=== PATIENT | male | born 2000 ===

== ENCOUNTER 2021-02-02 20:17 | Emergency (ER) | payer SELFPAY ==
[2021-02-02 20:41] VITALS: BP 137/87; PULSE 66; RESP 18; TEMP 36.2; O2SAT 99; BMI 27.3
[2021-02-02 21:33] LABS: COVID19 - ADMIT (NP swab/PCR) Negative (Negative)
--- NOTE | 2021-02-02 21:50 | ED.RECABL ---
HPI - Recheck/Abnormal Lab/Rx General Chief Complaint: Recheck/Abnormal Lab/Rx Stated Complaint: covid test for travel Time Seen by Provider: 02/02/21 21:49 Source: patient Mode of arrival: Ambulatory Limitations: no limitations History of Present Illness HPI narrative: Patient is an otherwise healthy 20-year-old male who has no symptoms and is fully immunized against COVID-19 who is here requesting a COVID test so that he can travel back to [place] Related Data Allergies Allergy/AdvReac Type Severity Reaction Status Date / Time No Known Drug Allergies Allergy Verified 02/02/21 20:41 Review of Systems Constitutional Comments: Denies fevers Respiratory Comments: Denies cough shortness of breath Gastrointestinal Comments: Denies abdominal pain or nausea and vomiting Integumentary/Breasts Comments: Denies rashes Patient History Medical History Healthy adult Social History Smoking Status: Never smoker Smoking Status: Never smoker alcohol intake frequency: holidays/special occasions only Substance Use Type: does not use Exam Initial Vital Signs Initial Vital Signs: Vital Signs Temperature 97.1 F L 02/02/21 20:41 Pulse Rate 66 02/02/21 20:41 Respiratory Rate 18 02/02/21 20:41 Blood Pressure 137/87 02/02/21 20:41 Pulse Oximetry 99 02/02/21 20:41 Const General: cooperative and comfortable Resp Effort & Inspection: normal respiratory effort Cardio Rate: regular rate Skin General: no rashes or lesions noted Neuro General: patient alert, patient awake and patient oriented x3 Extrem General: normal to inspection Psych Appearance: grossly normal and well kempt Course Orders Ordered: ED Orders 02/02/21 20:20 COVID19 - ADMIT (REHAB THERAPIST swab/PCR) Stat Vital Signs Vital signs: Vital Signs - 8 hr 02/02/21 20:41 Temperature 97.1 F L Pulse Rate 66 Respiratory Rate 18 Blood Pressure 137/87 Pulse Oximetry 99 MDM - Recheck/Abnormal Lab/Rx Lab Data Labs: Lab Results 02/02/21 Range/Units 20:20 SARS-CoV-2 (PCR) Negative (Negative) MDM Narrative Medical decision making narrative: Patient's COVID test was negative any was provided results of this. Discharge Plan Departure Patient Disposition: Home Clinical Impression: Encounter for laboratory testing for COVID-19 virus Instructions: Can COVID-19 be prevented? Activity Restrictions/Additional Instructions: Your COVID test was negative.
== END 2021-02-02 22:26 | disposition home or self-care (01) ==
PROVIDERS: Emergency Provider Emergency Medicine
DX: Z20.822 Contact with and (suspected) exposure to COVID-19 (principal)
CPT/HCPCS: 87635; 99281; C9803